=== PATIENT | male | born 1960 | race Caucasian/White ===

== ENCOUNTER 2019-12-21 15:08 | Outpatient (CLI) | payer BC, SELFPAY ==
[2019-12-21 16:06] LABS: Thyroid Stimulating Hormone < 0.015 uIU/mL (0.465-4.680)
[2019-12-21 16:23] LABS: Free T4 Free Thyroxine 1.59 ng/mL (0.78-2.19)
== END 2019-12-21 15:09 | disposition home or self-care (01) ==
PROVIDERS: PCP Internal Medicine; Visit Provider Internal Medicine
DX: E03.9 Hypothyroidism, unspecified (principal)
CPT/HCPCS: 36415; 84439; 84443

== ENCOUNTER 2020-06-12 09:31 | Outpatient (CLI) | payer BC, SELFPAY ==
[2020-06-12 10:04] LABS: Hemoglobin A1C 5.6 % (<5.7)
[2020-06-12 10:10] LABS: Alanine Aminotransferase 22 U/L (4-50); Albumin Level 4.3 g/dL (3.5-5.1); Alkaline Phosphatase 75 U/L (38-126); Anion Gap 10 mmol/L (8-16); Aspartate Amino Transferase 25 U/L (17-59); Bilirubin,Total 0.7 mg/dL (0.2-1.3); Blood Urea Nitrogen 22 mg/dL (9-20); Calcium 8.8 mg/dL (8.4-10.2); Carbon Dioxide 26 mmol/L (22-30); Chloride 104 mmol/L (98-107); Cholesterol 134 mg/dL (0-200); Estimated Glomerular Filt Rate > 60; Glucose 150 mg/dL (75-110); HDL Direct 35 mg/dL; Potassium 3.9 mmol/L (3.4-5.0); Sodium 140 mmol/L (137-145); Triglycerides 65 mg/dL (<150)
[2020-06-12 10:20] LABS: LDL Cholesterol Direct 83 mg/dL
[2020-06-12 10:39] LABS: Thyroid Stimulating Hormone < 0.015 uIU/mL (0.465-4.680)
[2020-06-17 15:17] LABS: Testosterone Free 32.2 pg/mL (35.0-155.0); Testosterone Total 307 ng/dL (250-1100)
== END 2020-06-12 09:32 | disposition home or self-care (01) ==
PROVIDERS: PCP Internal Medicine; Visit Provider Nurse Practitioner
DX: E11.9 Type 2 diabetes mellitus without complications (principal); E29.1 Testicular hypofunction; E03.9 Hypothyroidism, unspecified
CPT/HCPCS: 36415; 80053; 80061; 83036; 84402; 84403; 84443

== ENCOUNTER 2020-08-14 09:33 | Outpatient (CLI) | payer BC, SELFPAY ==
[2020-08-14 10:58] LABS: Thyroid Stimulating Hormone < 0.015 uIU/mL (0.465-4.680)
[2020-08-14 11:15] LABS: Free T4 Free Thyroxine 1.35 ng/mL (0.78-2.19)
== END 2020-08-14 09:34 | disposition home or self-care (01) ==
LOC: ANHLAB 09:35
PROVIDERS: PCP Internal Medicine; Visit Provider Nurse Practitioner
DX: E03.9 Hypothyroidism, unspecified (principal)
CPT/HCPCS: 36415; 84439; 84443

== ENCOUNTER 2020-11-10 13:01 | Emergency (ER) | payer BC, SELFPAY ==
--- NOTE | ~2020-11-10 | US_ITS ---
US abdomen limited INDICATION: Epigastric pain PROCEDURE: Realtime right upper abdominal ultrasound. COMPARISON: No prior studies for comparison. FINDINGS: The pancreas is normal without focal mass or pancreatic ductal dilation. Liver echotexture is normal without focal mass or intrahepatic biliary dilatation. There is normal directional flow i n the portal vein. There are gallstones. Gallbladder wall is mildly prominent measuring 3 mm. No pericholecystic fluid. Common bile duct measures 4 mm. No sonographic Hewitt's sign. IMPRESSION: 1: Cholelithiasis with mild gallbladder wall thickening. Consider cholecystitis in the appropriate cl inical setting. Reviewed, dictated and finalized at location A. CIATE DESIGNER IMPRESSION: 1: Cholelithiasis with mild gallbladder wall thickening. Consider cholecystitis in the appropriate clinical setting.
[2020-11-10 13:09] VITALS: BP 136/93; PULSE 83; RESP 18; TEMP 36.7; O2SAT 97
--- NOTE | 2020-11-10 14:02 | ED.ABDPAIN ---
HPI - Abdominal Pain General Chief Complaint: Abdominal Pain Stated Complaint: ABD Burning Time Seen by Provider: 11/10/20 13:27 Source: patient Mode of arrival: ambulatory Limitations: no limitations History of Present Illness HPI narrative: This is a 60-year-old male that presents the emergency department for abdominal pain since last night. Reports after eating pizza he noted some burning upper abdominal pain. Reports he has had trouble with reflux in the past. This feels similar. He has not tried to take any medications for this. Denies fever, chest pain, shortness of breath, or vomiting. Related Data Allergies Allergy/AdvReac Type Severity Reaction Status Date / Time No Known Allergies Allergy Unknown Verified 11/10/20 13:12 Review of Systems Review of Systems: Narrative: CONSTITUTIONAL: Denies fever CARDIOVASCULAR: Denies chest pain RESPIRATORY: Denies dyspnea. GASTROINTESTINAL: Reports abdominal pain. Denies nausea, vomiting All systems reviewed & are unremarkable except as noted in HPI and below PMFSH Past Medical History Medical History (Updated 11/10/20 @ 15:46 by Teresa Yin PA-C) Benign essential hypertension Hypothyroidism, unspecified Social History Social History Smoking status: Current every day smoker Alcohol intake: never Exam Narrative: Exam Narrative: GENERAL: Well-appearing, well-nourished, and in no acute distress. HEAD: Normocephalic, atraumatic. EYES: EOMI. CHEST: Clear to auscultation. No respiratory distress. No wheezes rales or rhonchi HEART: Regular rate and rhythm. No murmur heard. Normal peripheral pulses. ABDOMEN: Soft, nondistended, normal active bowel sounds. Mild tenderness to palpation in epigastrium, without guarding EXTREMITIES: Normal range of motion. No edema. SKIN: Warm, dry, no rash. NEURO: No focal deficits. Alert and oriented x3. PSYCH: Normal mood and affect Course Consultations Consultation #1: Spoke with Dr. Mora about patient and work-up. Patient will be sent on a low-fat diet and instructed to follow-up in clinic. Date: 11/10/20 Time: 15:43 Vital Signs Vital signs: Vital Signs Temperature 98.0 F 11/10/20 13:09 Pulse Rate 83 11/10/20 13:09 Respiratory Rate 18 11/10/20 13:09 Blood Pressure 136/93 H 11/10/20 13:09 Pulse Oximetry 97 11/10/20 13:09 Temperature 98.0 F 11/10/20 13:09 Pulse Rate 83 11/10/20 13:09 Respiratory Rate 18 11/10/20 13:09 Blood Pressure 136/93 H 11/10/20 13:09 Pulse Oximetry 97 11/10/20 13:09 MDM - Abdominal Pain MDM Narrative Medical decision making narrative: Patient presents to the emergency department for epigastric abdominal pain. He is afebrile and nontoxic-appearing. CBC is without leukocytosis. Metabolic panel and lipase without concerning findings. UA without evidence of infection. Right upper quadrant ultrasound does show cholelithiasis with mild gallbladder wall thickening. No pericholecystic fluid or sonographic Hewitt's sign. Patient was updated on case findings. He does report improvement with Protonix and GI cocktail. Spoke with Dr. Mora about patient and work-up. Patient will be sent on a low-fat diet and instructed to follow-up in clinic. Patient also instructed to take Pepcid for reflux symptoms. He is stable and felt appropriate for further outpatient evaluation. He was given warnings to return to the ER Lab Data Attestation: I reviewed the patient's lab results. Result diagrams: 11/10/20 13:58 11/10/20 13:58 Labs: Lab Results 11/10/20 11/10/20 11/10/20 Range/Units 13:58 13:58 14:04 WBC 7.8 (4.5-10.0) K/mm3 RBC 4.50 L (4.6-6.20) M/mm3 Hgb 14.0 (14.0-18.0) g/dL Hct 40.4 L (42.0-52.0) % MCV 89.8 (80-100) fl MCH 31.1 (26-34) pg MCHC 34.7 (32-36) g/dl RDW 12.8 (11.5-14.5) % Plt Count 193 (150-375) k/mm3 MPV 9.9 (7.4-10.4)
[2020-11-10 14:08] LABS: Basophils Absolute Auto 0.1 K/mm3 (0.0-0.1); Basophils Percent Auto 0.6 % (0.2-1.2); Eosinophils Absolute Auto 0.3 K/mm3 (0-0.3); Eosinophils Percent Auto 4.2 % (0-4.4); Hematocrit 40.4 % (42.0-52.0); Immature Granulocyte Absolute 0.02 K/mm3 (0.00-0.031); Immature Granulocyte Percent A 0.3 % (0-0.5); Lymphocytes Absolute Auto 1.91 K/mm3 (0.9-3.2); Lymphocytes Percent Auto 24.6 % (18.3-44.2); Mean Corpuscular HGB Conc 34.7 g/dl (32-36); Mean Corpuscular Hemoglobin 31.1 pg (26-34); Mean Corpuscular Volume 89.8 fl (80-100); Mean Platelet Volume 9.9 fl (7.4-10.4); Monocytes Absolute Auto 0.7 K/mm3 (0.1-0.6); Monocytes Percent Auto 8.5 % (2.6-8.5); Neutrophils Absolute Auto 4.8 K/mm3 (1.3-6.7); Neutrophils Percent Auto 61.8 % (45.5-73.1); Platelet Count Result 193 k/mm3 (150-375); Red Cell Distribution Width 12.8 % (11.5-14.5); White Blood Count 7.8 K/mm3 (4.5-10.0)
[2020-11-10] MEDS: PANTOPRAZOLE SODIUM IV 40 MG VIAL IV PUSH (14:10)
[2020-11-10 14:16] LABS: Add Urine Microscopic? YES; Appearance Urine Clear (Clear); Bilirubin Urine Negative (Negative); Blood Urine Negative (Negative); Color Urine Yellow (Yellow); Glucose Urine UA Negative (Negative); Ketones Urine Negative (Negative); Leukocyte Esterase Ur Negative LEU/UL (Negative); Mucus Urine Rare /lpf; Nitrate Urine Negative (Negative); Protein Urine Negative (Negative); WBC Urine 0-3 /hpf
[2020-11-10 14:17] LABS: Alanine Aminotransferase 28 U/L (4-50); Albumin Level 4.5 g/dL (3.5-5.1); Alkaline Phosphatase 75 U/L (38-126); Anion Gap 8 mmol/L (8-16); Aspartate Amino Transferase 33 U/L (17-59); Bilirubin,Total 0.4 mg/dL (0.2-1.3); Blood Urea Nitrogen 25 mg/dL (9-20); Calcium 8.9 mg/dL (8.4-10.2); Carbon Dioxide 26 mmol/L (22-30); Chloride 107 mmol/L (98-107); Estimated CRCL calculation 69 ml/min; Estimated Glomerular Filt Rate > 60; Glucose 120 mg/dL (75-110); Lipase 75 U/L (23-300); Potassium 3.6 mmol/L (3.4-5.0); Sodium 141 mmol/L (137-145)
[2020-11-10] MEDS: BELLADONNA ALK/PHENOB ELIX 10 ML, MAG HYDROX/ALUMINUM HYD/SIMETH 30 ML, LIDOCAINE HCL 2... PO (15:13)
[2020-11-10 15:58] VITALS: BP 131/88; PULSE 80; RESP 12; O2SAT 99
== END 2020-11-10 15:59 | disposition home or self-care (01) ==
PROVIDERS: Physician Assistant; Emergency Provider Family Medicine; PCP Internal Medicine
DX: K80.50 Calculus of bile duct without cholangitis or cholecystitis without obstruction (principal); K21.9 Gastro-esophageal reflux disease without esophagitis; I10 Essential (primary) hypertension; E03.9 Hypothyroidism, unspecified; F17.200 Nicotine dependence, unspecified, uncomplicated
CPT/HCPCS: 36415; 76705; 80053; 81001; 83690; 85025; 96374; 99284; A9270; C9113

== ENCOUNTER 2021-02-27 08:25 | Outpatient (CLI) | payer BC, SELFPAY ==
[2021-02-27 10:39] LABS: Hemoglobin A1C 5.8 % (<5.7)
[2021-02-27 12:05] LABS: Alanine Aminotransferase 21 U/L (4-50); Albumin Level 4.3 g/dL (3.5-5.1); Alkaline Phosphatase 62 U/L (38-126); Anion Gap 8 mmol/L (8-16); Aspartate Amino Transferase 30 U/L (17-59); Bilirubin,Total 0.5 mg/dL (0.2-1.3); Blood Urea Nitrogen 19 mg/dL (9-20); Calcium 8.5 mg/dL (8.4-10.2); Carbon Dioxide 23 mmol/L (22-30); Chloride 109 mmol/L (98-107); Cholesterol 143 mg/dL (0-200); Estimated Glomerular Filt Rate > 60; Glucose 104 mg/dL (75-110); HDL Direct 35 mg/dL; Potassium 4.2 mmol/L (3.4-5.0); Sodium 140 mmol/L (137-145); Triglycerides 62 mg/dL (<150)
[2021-02-27 12:16] LABS: LDL Cholesterol Direct 77 mg/dL
[2021-02-27 12:35] LABS: Thyroid Stimulating Hormone < 0.015 uIU/mL (0.465-4.680)
[2021-02-27 12:47] LABS: Prostate Specific Antigen 0.4 ng/mL (< OR = 4.0)
[2021-03-04 10:56] LABS: Testosterone Total 493 ng/dL (250-1100)
== END 2021-02-27 08:26 | disposition home or self-care (01) ==
PROVIDERS: PCP Internal Medicine; Visit Provider Nurse Practitioner
DX: E11.9 Type 2 diabetes mellitus without complications (principal); Z12.5 Encounter for screening for malignant neoplasm of prostate; E29.1 Testicular hypofunction; E03.9 Hypothyroidism, unspecified; E78.49 Other hyperlipidemia
CPT/HCPCS: 36415; 80053; 80061; 83036; 84153; 84403; 84443; G0103

== ENCOUNTER 2021-08-08 14:38 | Outpatient (CLI) | payer BC, SELFPAY ==
[2021-08-08 15:53] LABS: Thyroid Stimulating Hormone 0.245 uIU/mL (0.465-4.680)
== END 2021-08-08 14:39 | disposition home or self-care (01) ==
LOC: ANHLAB 14:43
PROVIDERS: PCP Internal Medicine; Visit Provider Nurse Practitioner
DX: E03.9 Hypothyroidism, unspecified (principal)
CPT/HCPCS: 36415; 84443

== ENCOUNTER 2021-08-28 07:27 | Outpatient (CLI) | payer BC, SELFPAY ==
[2021-08-28 07:51] LABS: Alanine Aminotransferase 96 U/L (4-50); Albumin Level 4.6 g/dL (3.5-5.1); Alkaline Phosphatase 67 U/L (38-126); Anion Gap 8 mmol/L (8-16); Aspartate Amino Transferase 38 U/L (17-59); Bilirubin,Total 0.4 mg/dL (0.2-1.3); Blood Urea Nitrogen 24 mg/dL (9-20); Calcium 8.5 mg/dL (8.4-10.2); Carbon Dioxide 25 mmol/L (22-30); Chloride 106 mmol/L (98-107); Cholesterol 179 mg/dL (0-200); Estimated Glomerular Filt Rate > 60; Glucose 102 mg/dL (65-110); HDL Direct 40 mg/dL; Potassium 4.2 mmol/L (3.4-5.0); Sodium 139 mmol/L (137-145); Triglycerides 78 mg/dL (<150)
[2021-08-28 08:02] LABS: LDL Cholesterol Direct 102 mg/dL
[2021-08-28 08:18] LABS: Hemoglobin A1C 5.9 % (<5.7)
[2021-08-28 08:22] LABS: Prostate Specific Antigen 0.5 ng/mL (< OR = 4.0)
[2021-09-02 09:34] LABS: Testosterone Total 283 ng/dL (250-1100)
== END 2021-08-28 07:28 | disposition home or self-care (01) ==
PROVIDERS: PCP Internal Medicine; Visit Provider Nurse Practitioner
DX: Z12.5 Encounter for screening for malignant neoplasm of prostate (principal); E78.49 Other hyperlipidemia; E11.9 Type 2 diabetes mellitus without complications
CPT/HCPCS: 36415; 80053; 80061; 83036; 84153; 84403; G0103

== ENCOUNTER 2021-10-22 14:39 | Outpatient (CLI) | payer BC, SELFPAY | END 2021-10-22 14:40 | disposition home or self-care (01) | LOC: ANHLAB 14:41 | PROVIDERS: PCP Internal Medicine; Visit Provider Nurse Practitioner | DX: E03.9 Hypothyroidism, unspecified (principal) | CPT/HCPCS: 36415; 84443 ==

== ENCOUNTER 2023-11-12 05:10 | Observation (INO) | payer BC, SELFPAY ==
[2023-11-12] VITALS (11 sets, daily range): BP systolic 148–184; BP diastolic 62–97; PULSE 63–79; RESP 12–20; TEMP 35.9–36.9; O2SAT 98–100; BMI 31.4
--- NOTE | ~2023-11-12 | CT_ITS ---
CT ANGIOGRAM NECK AND HEAD History: Diplopia. Technique: Axial noncontrast imaging of the brain was performed. Serial spiral axial images through t he head and neck were then obtained during arterial phase IV injection of 100 cc of Omnipaque 350. 3- D postprocessing and MIP images were then reconstructed on the remote workstation. Dose reduction michel hnique was used on this scan by utilizing automated exposure control and iterative reconstruction michel hnique. The dose-length product (DLP) was 1743.63 mGy-cm. CTA neck findings: There is occlusion of the left vertebral artery at its origin. Right vertebral ar clover is patent. Bilateral common carotid, internal carotid, external carotid arteries are patent. The re are calcified atherosclerotic plaques at the proximal internal carotid arteries bilaterally, with 20% stenosis at the proximal right internal carotid artery, and 50% stenosis at the proximal left int ernal carotid artery. The proximal right internal carotid artery demonstrates 20% stenosis relative t o the normal distal artery lumen diameter. The proximal left internal carotid artery demonstrates 50% stenosis relative to the normal distal artery lumen diameter. CTA head findings: Basilar artery and posterior cerebral arteries are patent. Distal internal carotid arteries, middle cerebral arteries, and anterior cerebral arteries are patent. No large vessel occlu kaiser. No stenosis or aneurysm. Axial noncontrast imaging of the brain is unremarkable. No acute infarct, intracranial hemorrhage or mass lesion seen. Mitchell-white differentiation preserved. No mass effect or midline shift. Ventricles a nd subarachnoid spaces are unremarkable. There is mild left maxillary and bilateral ethmoid sinus dis ease. Impression: Complete occlusion at the origin of the left vertebral artery. 50% stenosis proximal left internal carotid artery. 20% stenosis at the proximal right internal carotid artery. Reviewed, dictated and finalized at location M. Impression: Complete occlusion at the origin of the left vertebral artery. 50% stenosis proximal left internal carotid artery. 20% stenosis at the proximal right internal carotid artery.
--- NOTE | ~2023-11-12 | MR_ITS ---
EXAMINATION: MR orbits face neck wo/w con DATE: 11/12/2023 11:48 INDICATION: Diplopia. Transient ischemic attack. TECHNIQUE: Magnetic resonance imaging (MRI) of the orbits was performed without and with 20 mL MultiH ance intravenous contrast. COMPARISON: Head CT 11/12/2023 FINDINGS: There is mucosal thickening in the paranasal sinuses. There is rightward deviation of the n nathaly septum. The ocular globes are normal. The optic nerves are normal. The optic chiasm is normal. T he extraocular muscles are normal. There is no abnormal orbital mass. IMPRESSION: 1. Normal orbits. Reviewed, dictated and finalized at location A. IMPRESSION: 1. Normal orbits.
--- NOTE | ~2023-11-12 | XR_ITS ---
EXAMINATION: XR chest 2V DATE: 11/12/2023 14:25 INDICATION: New onset stroke TECHNIQUE: PA and lateral views of the chest were obtained. COMPARISON: None FINDINGS: Mild elevation the left hemidiaphragm and mild pleural thickening at the lateral left lower lung zone . Relatively symmetric small nodular opacities projecting along the inferior margin of the bilateral anterior fifth ribs most likely representing nipple shadows. No other airspace opacities, pulmonary e nayan, pleural effusion or pneumothorax. The cardiomediastinal silhouette is normal. Mild upper thorac ic and moderate thoracolumbar spondylosis. IMPRESSION: 1. Mild elevation the left hemidiaphragm with nonspecific mild pleural thickening at the lateral left lower lung zone. Reviewed, dictated and finalized at location L. IMPRESSION: 1. Mild elevation the left hemidiaphragm with nonspecific mild pleural thickeni ng at the lateral left lower lung zone.
--- NOTE | ~2023-11-12 | MR_ITS ---
EXAMINATION: MR brain/brain stem wo/w con DATE: 11/12/2023 11:48 INDICATION: Transient ischemic attack. TECHNIQUE: Magnetic resonance imaging (MRI) of the brain and brainstem was performed without and with 20 mL MultiHance intravenous contrast. COMPARISON: Head CT 11/12/2023 FINDINGS: There is a 10 x 4 x 6 mm enhancing extra-axial mass inferolateral to the left frontal lobe, consistent with a meningioma. There are scattered areas of nonspecific increased T2-weighted signal intensity in the cerebral white matter, which is within normal limits for the patient's age. There is no intracranial hemorrhage or acute infarction. The ventricles are normal in size. There is mucosal thickening in the paranasal sinuses. The orbits are normal. The mastoid air cells are normal. IMPRESSION: 1. Small meningioma inferolateral to left frontal lobe. Reviewed, dictated and finalized at location A.
--- NOTE | 2023-11-12 05:20 | ECG_ITS ---
Measurements Intervals [place] Rate: 67 P: 19 IN: 168 QRS: -20 QRSD: 97 T: 7 QT: 389 QTc: 412 Interpretive Statements SINUS RHYTHM LEFT VENTRICULAR HYPERTROPHY MINIMAL Q WAVES- HIGH LATERAL LEADS BORDERLINE ECG COMPARED TO ECG 06/15/2019 20:13:35 LEFT VENTRICULAR HYPERTROPHY NOW PRESENT Electronically Signed On 11-12-2023 6:27:09 CDT by Arnulfo Espinoza D.O.
[2023-11-12 06:26] LABS: Basophils Absolute Auto 0.1 K/mm3 (0.0-0.1); Basophils Percent Auto 0.6 % (0.2-1.2); Eosinophils Absolute Auto 0.6 K/mm3 (0-0.3); Eosinophils Percent Auto 7.5 % (0-4.4); Hematocrit 41.4 % (42.0-52.0); Hemoglobin 13.6 g/dL (14.0-18.0); Immature Granulocyte Absolute 0.04 K/mm3 (0.00-0.031); Immature Granulocyte Percent A 0.5 % (0-0.5); Lymphocytes Absolute Auto 1.49 K/mm3 (0.9-3.2); Lymphocytes Percent Auto 19.1 % (18.3-44.2); Mean Corpuscular HGB Conc 32.9 g/dl (32-36); Mean Corpuscular Volume 91.2 fl (80-100); Mean Platelet Volume 9.8 fl (7.4-10.4); Monocytes Absolute Auto 0.8 K/mm3 (0.1-0.6); Monocytes Percent Auto 10.1 % (2.6-8.5); Neutrophils Absolute Auto 4.9 K/mm3 (1.3-6.7); Neutrophils Percent Auto 62.2 % (45.5-73.1); Platelet Count Result 210 k/mm3 (150-375); Red Blood Count 4.54 M/mm3 (4.6-6.20); White Blood Count 7.8 K/mm3 (4.5-10.0)
[2023-11-12 06:36] LABS: Alanine Aminotransferase 46 U/L (6-50); Albumin Level 4.9 g/dL (3.5-5.1); Alkaline Phosphatase 81 U/L (38-126); Anion Gap 8 mmol/L (8-16); Aspartate Amino Transferase 40 U/L (17-59); Bilirubin,Total 0.7 mg/dL (0.2-1.3); Blood Urea Nitrogen 33 mg/dL (9-20); Calcium 9.4 mg/dL (8.4-10.2); Carbon Dioxide 24 mmol/L (22-30); Chloride 105 mmol/L (98-107); Estimated CRCL calculation 55 ml/min; Estimated Glomerular Filt Rate 51; Glucose 114 mg/dL (65-110); Potassium 3.9 mmol/L (3.4-5.0); Sodium 137 mmol/L (137-145)
--- NOTE | 2023-11-12 07:49 | ED.GENADULT ---
HPI - General Adult General Chief complaint: Recheck/Abnormal Lab/Rx Stated complaint: HTN Time Seen by Provider: 11/12/23 05:11 History of Present Illness HPI narrative: This is a 63-year-old male with a history of hypertension and hypothyroid presenting for double vision. Patient woke up this morning (LKK 4:15am) to go to work and noticed that when he looked down he developed double vision. He denies dysphagia dysarthria, loss of coordination or numbness tingling weakness to any extremity. Patient denies any trauma. Related Data Allergies Allergy/AdvReac Type Severity Reaction Status Date / Time No Known Allergies Allergy Unknown Verified 11/12/23 05:17 [facility] Past Medical History Medical History Benign essential hypertension H/O gastroesophageal reflux (GERD) Hypothyroidism, unspecified Tobacco abuse Surgical History Surgical History H/O thumb surgery Family History Family History Father Diabetes mellitus Mother Hypertension Other Diabetes mellitus Cerebrovascular accident Social History Social History Smoking packs per day: 1 Smoking cigarettes per day: 20.0 Years smoked: 30 Smoking pack-years: 30.00 Smoking status: Former smoker Tobacco type: cigarettes Second hand tobacco smoke exposure: Yes Smoking end date: 08/31/20 Alcohol intake: never Substance use: never Substance use type: does not use Lack of Transportation: No Lack of Food: Never True Current Housing: I Have Housing Concerned About Future Housing: No Difficulty Paying Gas/Electric Bills: No Difficulty Paying for Meds: No Currently Unemployed: No Education: Trade/Vocational Certificate Difficulty w/ Childcare or Family Care: No Living arrangements: with family Occupation/Education: occupation Additional occupation/education comments: maintenance Gender identity (if verbalized by the patient): Male Exam Narrative: APPEARANCE: No apparent distress. Head: atraumatic. EYES: Pupils equal reactive, patient holding his head in the rightward tilt NOSE: Atraumatic NECK: Trachea midline RESPIRATORY: No increased rate of breathing CARDIOVASCULAR: RRR, ABDOMINAL: Non-distended MUSCULOSKELETAl: No obvious deformities NEURO: Alert. Cranial nerves 2-12 grossly intact. Sensation light touch, motor function cerebellar function intact for 4 extremities. Gait exam was normal. no visual field deficits. double vision improves when the patient told his head to the right and looks to the left and worsens when he tilts his head to the left and looks to the right. SKIN:: Warm, dry. Normal color PSYCHIATRIC: Normal affect NIH Stroke Scale/Score (NIHSS) from [email or web address] on 11/12/2023 All calculations should be rechecked by clinician prior to use RESULT SUMMARY: 0 points NIH Stroke Scale INPUTS: 1A: Level of consciousness ?> 0 = Alert; keenly responsive 1B: Ask month and age ?> 0 = Both questions right 1C: 'Blink eyes' & 'squeeze hands' ?> 0 = Performs both tasks 2: Horizontal extraocular movements ?> 0 = Normal 3: Visual weber ?> 0 = No visual loss 4: Facial palsy ?> 0 = Normal symmetry 5A: Left arm motor drift ?> 0 = No drift for 10 seconds 5B: Right arm motor drift ?> 0 = No drift for 10 seconds 6A: Left leg motor drift ?> 0 = No drift for 5 seconds 6B: Right leg motor drift ?> 0 = No drift for 5 seconds 7: Limb Ataxia ?> 0 = No ataxia 8: Sensation ?> 0 = Normal; no sensory loss 9: Language/aphasia ?> 0 = Normal; no aphasia 10: Dysarthria ?> 0 = Normal 11: Extinction/inattention ?> 0 = No abnormality Course Vital Signs Vital signs: Vital Signs Temperature 98.2 F 11/12/23 05:10 Pulse Rate 70 11/12/23 05:10 Respiratory Rate 13 11/12/23 05:10 Blood Pressure 184/
[2023-11-12] MEDS: ASPIRIN 81 MG CHEWABLE TABLET 324 MG PO (08:33)
--- NOTE | 2023-11-12 09:55 | ADMGEN ---
This patient, Sudheer Anderson, was admitted to 2 Medical Room 261-01. Patient/family oriented to hospital policies and general routines including ID bracelet, bed and alarms, visiting hours, pain management, procedures, bathroom and other care routines, personal items, smoking policy, room service/diet, and visiting hours. Information on how to activate the Rapid Response Team has been discussed. Patient/Family are encouraged to report perceived risks to care and to ask questions if they do not understand what they are told or what they should do.
--- NOTE | 2023-11-12 11:02 | WPDNEURCNPN ---
Assessment and Plan Assessment and plan (1) Brain TIA: Code(s): G45.9 - Transient cerebral ischemic attack, unspecified Status: Acute (2) Cranial nerve IV palsy: Code(s): H49.10 - Fourth [trochlear] nerve palsy, unspecified eye Status: Acute (3) Occlusion of left vertebral artery: Code(s): I65.02 - Occlusion and stenosis of left vertebral artery Status: Acute (4) Benign essential hypertension: Code(s): I10 - Essential (primary) hypertension Status: Acute Plan Sudheer Anderson is a 63 year old male with a history of prediabetes, HTN, hypothyroidism presenting for evaluation of double vision, that was improved with tilting his head to the right, that self-resolved. Concerning for isolated cranial nerve IV palsy. Could be transient microvascular event from uncontrolled BP. MRI brain and orbit was unrevealing other than small L frontal meningioma ([id number]). ABCD score for TIA is 4 -- recommend DAPT x 3 weeks. - Start Aspirin 81mg daily - Plavix 75mg x 3 weeks - Obtain surface echocardiogram with bubble study - Check LDL and HgbA1c, goal LDL is <70. If elevated will need to be started on statin. - Aim for normotension Consult date: 11/12/23 Reason for consult: Double vision HPI: Sudheer Anderson is a 63 year old male with a history of HTN, hypothyroidism presenting for evaluation of double vision. Patient woke up around 0415 this morning and noticed that he had double vision, that was improved with tilting his head to the right, and worse with tilting the head to the left. He did not develop any other symptoms -- no focal weakness/numbness, speech or balance issues. He presented to [place] ED where his NIH score was 0. BP ranged from 155/87-184/95. CT head was negative for any acute findings. CTA brain/carotid showed complete occlusion of the left vertebral artery, 50% stenosis of the proximal L ICA and 20% stenosis of the R ICA. Symptoms resolved while patient was in the ER. The ER physician discussed case with [facility] ophthalmology who recommend MRI of the orbits. He also discussed case with [facility] stroke team, who recommended routine stroke work-up and secondary prevention. Patient is feeling well at the time of my evaluation. He reports that once his BP was treated in the ED, his symptoms began to resolve. He does not have any double vision presently. When he was having the double vision, it occurred with looking up and looking down, but not with lateral or midline gaze. Review of Systems Review of Systems: All systems reviewed & are unremarkable except as noted in HPI and below PMFSH Past Medical History Medical History (Updated 11/12/23 @ 14:23 by Keena Love APRN) Benign essential hypertension Cholelithiasis H/O gastroesophageal reflux (GERD) Hypothyroidism, unspecified Other hyperlipidemia Prediabetes Testicular hypofunction Tobacco abuse Surgical History Surgical History H/O thumb surgery Family History Family History Father Diabetes mellitus Mother Hypertension Other Diabetes mellitus Cerebrovascular accident Social History Social History Smoking packs per day: 1 Smoking cigarettes per day: 20.0 Years smoked: 30 Smoking pack-years: 30.00 Smoking status: Former smoker Second hand tobacco smoke exposure: Yes Alcohol intake: never Substance use: never Substance use type: does not use Do You Feel Safe in your Home?: Yes Lack of Transportation: No Lack of Food: Never True Current Housing: I Have Housing Concerned About Future Housing: No Difficulty Paying Gas/Electric Bills: No Difficulty Paying for Meds: No Currently Unemployed: No Education: High School Diploma/GED Difficulty w/ Childcare or Family Care: No Living arrangements: with family Occupation
--- NOTE | 2023-11-12 13:47 | PM.IMHP ---
H&P: HPI History of Present Illness Date/Time: 11/12/23 13:47 Chief Complaint: Vision Changes Narrative: 63 y/o M presents here with visual changes with PMH of HTN, tobacco use, hypothyroidism, and GERD. Patient reports going to sleep at 21:00 on 11/10 without visual disturbances. Patient discovered symptoms at 04:15am this morning (11/11). While getting ready for work he noticed double vision, blurred - noticed it while looking down, but did still notice it when looking upward later in the ED. No hx of migraines. No recent headaches. Recent illness - URI last week. No recent trauma. Denies any other focal deficits - dysarthria, facial droop, dysphagia, no LOC, focal weakness, changes in sensation, or changes in gait. Patient reported diplopia and blurred vision resolved after his blood pressure was reduced. Patient does not take BP at home. Initial VS at presentation: 98.2 F, HR 70, RR 13, 184/95, 99% on RA. ED workup showed: unremarkable WBC and Hgb, creatinine 1.4 (previously 1.13 in 2021), and TSH WNL. CTA of the head and neck showed complete occlusion of the L vertebral artery, 50% stenosis of the L ICA, and 20% of the R ICA. Review of Systems Review of Systems: All systems reviewed & are unremarkable except as noted in HPI and below [facility] Past Medical History Medical History (Updated 11/12/23 @ 14:23 by Keena Love APRN) Benign essential hypertension Cholelithiasis H/O gastroesophageal reflux (GERD) Hypothyroidism, unspecified Other hyperlipidemia Prediabetes Testicular hypofunction Tobacco abuse Surgical History Surgical History H/O thumb surgery Family History Family History Father Diabetes mellitus Mother Hypertension Other Diabetes mellitus Cerebrovascular accident Social History Social History Smoking packs per day: 1 Smoking cigarettes per day: 20.0 Years smoked: 30 Smoking pack-years: 30.00 Smoking status: Former smoker Second hand tobacco smoke exposure: Yes Alcohol intake: never Substance use: never Substance use type: does not use Do You Feel Safe in your Home?: Yes Lack of Transportation: No Lack of Food: Never True Current Housing: I Have Housing Concerned About Future Housing: No Difficulty Paying Gas/Electric Bills: No Difficulty Paying for Meds: No Currently Unemployed: No Education: High School Diploma/GED Difficulty w/ Childcare or Family Care: No Living arrangements: with family Occupation/Education: occupation Additional occupation/education comments: maintenance Gender identity (if verbalized by the patient): Male Spiritual care concerns: No Meds Home Medications and Allergies Home Medications Medication Instructions Recorded Confirmed Type amlodipine 10 mg tablet See Rx Instructions .Route 08/12/23 11/12/23 Rx .COMPLEX #30 tabs hydrochlorothiazide 25 mg tablet 25 mg PO DAILY #30 tabs 08/12/23 11/12/23 Rx levothyroxine 88 mcg tablet See Rx Instructions .Route 08/12/23 11/12/23 Rx .COMPLEX #30 tabs valsartan 320 mg tablet 320 mg PO DAILY #30 tabs 08/12/23 11/12/23 Rx clotrimazole-betamethasone 1 1 applic topical BID foot rash #15 10/20/23 11/12/23 Rx %-0.05 % topical cream grams Allergies Allergy/AdvReac Type Severity Reaction Status Date / Time No Known Allergies Allergy Unknown Verified 11/12/23 10:12 Vital Signs Vital Signs - 24 hr 11/12/23 05:10 11/12/23 05:38 11/12/23 06:27 Temperature 98.2 F Pulse Rate 70 67 Respiratory Rate 13 12 Blood Pressure 184/95 H 175/97 H 155/87 H Pulse Oximetry 99 98 Oxygen Delivery Room Air 11/12/23 07:47 11/12/23 10:21 11/12/23 12:44 Temperature 97 F L Pulse Rate 70 65 72 Respiratory Rate 14 14 Blood Pressure 164/83 H 155/78 H Pulse Oximetry 99 100 Oxygen Delivery
--- NOTE | 2023-11-12 14:16 | ECHO_ITS ---
Patient Info Name: Sudheer Anderson Age: 63 years : 1960 Gender: Male Ht: 68 in Wt: 220 lbs BSA: 2.22 m2 HR: 63 bpm BP: 148 / 66 mmHg Heart Rhythm: Sinus Rhythm Technical Quality: Good Exam Date: 11/12/2023 2:55 PM Exam Location: Echo Lab Patient Status: Inpatient Admit Date: 11/12/2023 Staff Ordering Physician: Keena Love APRN Investment Representative: Whit Riggs RDCS Attending Provider: Polo Wyatt MD Referring Physician: Ivan VARMA; Exam Type: CA echo doppler w bubble study Study Info Indications - CVA workeup Complete two-dimensional, color flow and Doppler transthoracic echocardiogram is performed with agitated saline. Summary 1. Left ventricular chamber dimension is normal. 2. Left ventricular systolic function is normal, estimated at 60-65%. 3. There is mildly increased left ventricular wall thickness. 4. The left ventricular diastolic function is grade I diastolic dysfunction. 5. Right ventricular chamber dimension is mildly enlarged. 6. Right ventricular systolic function is normal. 7. There is mild mitral valve regurgitation. 8. Intact interatrial septum visualized by color flow and agitated saline imaging. Negative bubble study. Left Ventricle Left ventricular chamber dimension is normal. Left ventricular systolic function is normal, estimated at 60-65%. There is mildly increased left ventricular wall thickness. The left ventricular diastolic function is grade I diastolic dysfunction. Right Ventricle Right ventricular chamber dimension is mildly enlarged. Right ventricular systolic function is normal. Left Atria Left atrial chamber dimension is normal. Right Atria Right atrial chamber dimension is normal. Atrial Septum Intact interatrial septum visualized by color flow and agitated saline imaging. Negative bubble study. Aortic Valve The aortic valve is not well visualized. There is no aortic valve stenosis. There is no aortic valve regurgitation. Pulmonic Valve The pulmonic valve is not well visualized. Mitral Valve There is mild mitral valve regurgitation. Tricuspid Valve There is trace tricuspid valve regurgitation. Pericardium/Pleural There is no pericardial effusion. Inferior Vena Cava Normal inferior vena cava with >50% collapse upon inspiration consistent with normal right atrial pressure, 3 mmHg. Aorta The aortic root size at the sinus of Valsalva is normal. Left Ventricular Outflow Tract Name Value Normal LVOT 2D LVOT Diameter 2.3 cm LVOT Doppler LVOT Peak Gradient 2 mmHg LVOT Mean Gradient 1 mmHg LVOT VTI 17 cm LVOT VTI/AV VTI Ratio 0.8 LVOT Stroke Volume 71 ml LVOT CO 4.4 l/min LVOT CI 2.0 l/min/m2 Mitral Valve Name Value Normal MV Doppler MV Decel [place]
[2023-11-12] MEDS: LACTATED RINGERS 1,000 ML 100 ML IV CONT (14:46)
[2023-11-12 15:02] LABS: Cholesterol 179 mg/dL (0-200); HDL Direct 36 mg/dL; Triglycerides 106 mg/dL (<150)
[2023-11-12 15:13] LABS: LDL Cholesterol Direct 110 mg/dL
[2023-11-12] MEDS: BETAMETHASONE/CLOTRIMAZOLE CR 15 GM TUBE 1 APPLIC TOPICAL (16:23)
[2023-11-13] VITALS: PULSE 65
[2023-11-13 04:00] VITALS: PULSE 68
[2023-11-13 06:00] VITALS: BP 160/64; PULSE 85; RESP 20; TEMP 36.3; O2SAT 98
[2023-11-13] MEDS: LEVOTHYROXINE SODIUM 88 MCG TABLET PO (06:25)
[2023-11-13 07:47] LABS: Alanine Aminotransferase 42 U/L (6-50); Albumin Level 4.7 g/dL (3.5-5.1); Alkaline Phosphatase 77 U/L (38-126); Anion Gap 8 mmol/L (8-16); Aspartate Amino Transferase 36 U/L (17-59); Bilirubin,Total 0.6 mg/dL (0.2-1.3); Blood Urea Nitrogen 32 mg/dL (9-20); Calcium 9.1 mg/dL (8.4-10.2); Carbon Dioxide 27 mmol/L (22-30); Chloride 104 mmol/L (98-107); Estimated CRCL calculation 50 ml/min; Estimated Glomerular Filt Rate 47; Glucose 101 mg/dL (65-110); Potassium 3.7 mmol/L (3.4-5.0); Sodium 139 mmol/L (137-145)
[2023-11-13 07:51] LABS: Basophils Absolute Auto 0.1 K/mm3 (0.0-0.1); Basophils Percent Auto 0.9 % (0.2-1.2); Eosinophils Absolute Auto 0.5 K/mm3 (0-0.3); Eosinophils Percent Auto 6.3 % (0-4.4); Hematocrit 41.1 % (42.0-52.0); Hemoglobin 13.4 g/dL (14.0-18.0); Immature Granulocyte Absolute 0.03 K/mm3 (0.00-0.031); Immature Granulocyte Percent A 0.4 % (0-0.5); Lymphocytes Absolute Auto 1.27 K/mm3 (0.9-3.2); Lymphocytes Percent Auto 16.2 % (18.3-44.2); Mean Corpuscular HGB Conc 32.6 g/dl (32-36); Mean Corpuscular Volume 91.9 fl (80-100); Mean Platelet Volume 9.9 fl (7.4-10.4); Monocytes Absolute Auto 0.7 K/mm3 (0.1-0.6); Monocytes Percent Auto 9.3 % (2.6-8.5); Neutrophils Absolute Auto 5.2 K/mm3 (1.3-6.7); Neutrophils Percent Auto 66.9 % (45.5-73.1); Platelet Count Result 209 k/mm3 (150-375); Red Blood Count 4.47 M/mm3 (4.6-6.20); Red Cell Distribution Width 13.2 % (11.5-14.5); White Blood Count 7.8 K/mm3 (4.5-10.0)
[2023-11-13 08:00] VITALS: BP 171/84; PULSE 77; PULSE 78; RESP 20; TEMP 36.4; O2SAT 100
[2023-11-13] MEDS: CLOPIDOGREL BISULFATE 75 MG TABLET PO (08:32)
[2023-11-13] MEDS: VALSARTAN 160 MG TABLET 320 MG PO (08:32)
[2023-11-13] MEDS: ATORVASTATIN 40 MG TABLET PO (08:32)
[2023-11-13] MEDS: hydroCHLOROthiazide 25 MG TABLET PO (08:32)
[2023-11-13] MEDS: amLODIPine BESYLATE 5 MG TABLET 10 MG PO (08:32)
[2023-11-13] MEDS: ASPIRIN 81 MG ENTERIC TABLET PO (08:32)
[2023-11-13] MEDS: BETAMETHASONE/CLOTRIMAZOLE CR 15 GM TUBE 1 APPLIC TOPICAL (08:33)
[2023-11-13 12:00] VITALS: BP 147/65; PULSE 73; PULSE 77; RESP 20; TEMP 36.6; O2SAT 100
--- NOTE | 2023-11-13 13:47 | PC.NURSE ---
On 11/13/23, the student, [Bryon Vergara], provided care and completed [facility] documentation on this patient. I have reviewed the student's documentation and agree with the findings.
--- NOTE | 2023-11-13 14:08 | PM.DS ---
DS: Admitting Diagnosis Discharge Date 11/13/23 Admitting Diagnosis vision changes DS: Discharge Diagnosis Discharge Diagnosis (1) Occlusion of left vertebral artery: Code(s): I65.02 - Occlusion and stenosis of left vertebral artery Status: Acute Assessment and Plan: New deficits of diplopia discovered at 11/11 @0415. Imaging showed complete occlusion at the origin of the left vertebral artery.. -ED discussed case with the [facility]roke [facility] - Dr Steven Chairez. Due to resolution of symptoms despite imaging findings, they recommended typical stroke reduction medications and MRI. - CXR WNL - CTA 1. Complete occlusion at the origin of the left vertebral artery. 2. 50% stenosis proximal left internal carotid artery. 3. 20% stenosis at the proximal right internal carotid artery. - Neurology consulted - Anam ARREOLA. Provided the following recs: ABCD score for TIA is 4 -- recommend DAPT x 3 weeks. Start Aspirin 81mg daily Plavix 75mg x 3 weeks echocardiogram with bubble study Check LDL and HgbA1c, goal LDL is <70. If elevated will need to be started on statin. C/F isolated cranial nerve IV palsy v transient microvascular event secondary to uncontrolled HTN - Aim for normotension - monitor BP with cuff at home - Brain MRI w/wo 1. small meningioma (10 x 4 x 6 mm) inferolateral to left frontal lobe. - Orbits/Face/Neck MRI 1. normal orbits - Echo w/Bubble unrevealing - Atorvastatin 40 mg PO, d/c if lipid panel WNL - Plavix 75 mg PO - ASA 81 mg (2) ABHIJEET (acute kidney injury): Code(s): N17.9 - Acute kidney failure, unspecified Status: Acute Assessment and Plan: - suspect injury superimposed on some degree of CKD -could be secondary to uncontrolled hypertension (3) Benign essential hypertension: Code(s): I10 - Essential (primary) hypertension Status: Chronic (4) Hypothyroidism, unspecified: Qualifiers: Hypothyroidism type: acquired Qualified Code(s): E03.9 - Hypothyroidism, unspecified Code(s): E03.9 - Hypothyroidism, unspecified Status: Chronic DS: Summary Hospital Course Hospital Course: 63 y/o M presents here with visual changes with PMH of HTN, tobacco use, hypothyroidism, and GERD. While getting ready for work he noticed double vision, blurred - noticed it while looking down, but did still notice it when looking upward later in the ED. No hx of migraines. No recent headaches. Recent illness - URI last week. No recent trauma. Patient reported diplopia and blurred vision resolved after his blood pressure was reduced. Patient does not take BP at home. Initial VS at presentation: 98.2 F, HR 70, RR 13, 184/95, 99% on RA. ED workup showed: unremarkable WBC and Hgb, creatinine 1.4 (previously 1.13 in 2021), and TSH WNL. CTA of the head and neck showed complete occlusion of the L vertebral artery, 50% stenosis of the L ICA, and 20% of the R ICA. Neurology consulted - ABCD score for TIA is 4 -- recommend DAPT x 3 weeks. Start Aspirin 81mg daily. Plavix 75mg x 3 weeks. echocardiogram with bubble study unrevealing. Goal LDL is <70. C/F isolated cranial nerve IV palsy v transient microvascular event secondary to uncontrolled HTN. Symptoms have resolved, discussed importance of BP cuff and monitoring at home. Patient to follow up with PCP upon d/c. Time Spent with Patient Time attestation: Total time spent providing and/or coordinating discharge services: Exam Narrative: GEN: well appearing, male. No acute distress. Head: atraumatic. EYES: PERRLA, EOMI NECK: supple RESPIRATORY: Lungs clear to auscultation CARDIOVASCULAR: RRR. ABDOMINAL: Non-distended, soft non tender with normal BS MUSCULOSKELETAL: No obvious deformities. No edema. NEURO: Alert and oriented x3. Cranial nerves 2-12 grossly intact. Gait exam was normal. no visual deficits. SKIN:: Warm, dry. Normal color PSYCHIATRIC: Normal affect. DS: Data Data Completed and Pending Labs on day o
== END 2023-11-13 14:45 | disposition home or self-care (01) ==
LOC: ANHED 08:23 → ANH2MED 11-13 10:12
PROVIDERS: Student in an Organized Health Care Education/Training Program; Admitting Provider Internal Medicine; Emergency Provider Emergency Medicine; PCP Nurse Practitioner; Visit Provider Internal Medicine
DX: I65.02 Occlusion and stenosis of left vertebral artery (principal); H49.12 Fourth [trochlear] nerve palsy, left eye; I65.23 Occlusion and stenosis of bilateral carotid arteries; D32.0 Benign neoplasm of cerebral meninges; N17.9 Acute kidney failure, unspecified; I11.9 Hypertensive heart disease without heart failure; I34.0 Nonrheumatic mitral (valve) insufficiency; E03.9 Hypothyroidism, unspecified; K21.9 Gastro-esophageal reflux disease without esophagitis; R73.03 Prediabetes; Z87.891 Personal history of nicotine dependence; Z79.899 Other long term (current) drug therapy
CPT/HCPCS: 36415; 70496; 70498; 70543; 70553; 71046; 80053; 80061; 83036; 84443; 85025; 93005; 93306; 96375; 99199; 99285; A9270; A9577; G0378; J7120; Q9967

== ENCOUNTER 2024-03-19 09:05 | Emergency (ER) | payer BC, SELFPAY ==
--- NOTE | 2024-03-19 09:14 | ED.GENADULT ---
HPI - General Adult General Chief complaint: Skin/Abscess/Foreign Body Stated complaint: Allergic Reaction/Wound Time Seen by Provider: 03/19/24 09:16 Source: patient, RN notes reviewed and old records reviewed Mode of arrival: ambulatory Limitations: no limitations History of Present Illness HPI narrative: 63-year-old presents to the [facility] with complaints redness, swelling in itchy areas around a area of the right distal forearm. Had stated he cut himself on Thursday, 5 days ago on an old swelling machine. A small abrasion is noted with surrounding erythema and mild swelling. Has surrounding probable folliculitis Slightly increased warmth. No drainage. Onset (ago): day(s) Related Data Allergies Allergy/AdvReac Type Severity Reaction Status Date / Time No Known Allergies Allergy Unknown Verified 11/18/23 14:39 Review of Systems Review of Systems: All systems reviewed & are unremarkable except as noted in HPI and below Constitutional: Constitutional: Reports no additional constitutional complaints Eyes: Eyes: Reports no additional eye complaints ENT: Reports system reviewed and no additional complaints, except as documented Cardiovascular: Cardiovascular: Reports no additional cardiovascular complaints, Denies chest pain and Denies dyspnea Respiratory: Respiratory: Reports no additional respiratory complaints, Denies chest congestion, Denies cough and Denies dyspnea Gastrointestinal: Gastrointestinal: Reports no additional gastrointestinal complaints, Denies abdominal pain, Denies nausea and Denies vomiting Musculoskeletal: Musculoskeletal: Reports no additional musculoskeletal complaints Integumentary/Breasts: Skin/Breast: Reports as per HPI Neurologic: Reports system reviewed and no additional complaints, except as documented Psychiatric: Psychiatric: Reports no additional psychiatric complaints Allergic/Immunologic: Allergic/Immunologic: Reports no additional allergic/immunologic complaints [facility] Past Medical History Medical History Benign essential hypertension Cholelithiasis H/O gastroesophageal reflux (GERD) Hypothyroidism, unspecified Other hyperlipidemia Prediabetes Testicular hypofunction Tobacco abuse Surgical History Surgical History H/O thumb surgery Family History Family History Father Diabetes mellitus Mother Hypertension Other Diabetes mellitus Cerebrovascular accident Social History Social History Smoking packs per day: 1 Smoking cigarettes per day: 20.0 Years smoked: 30 Smoking pack-years: 30.00 Smoking status: Former smoker Second hand tobacco smoke exposure: Yes Alcohol intake: never Substance use: never Substance use type: does not use Do You Feel Safe in your Home?: Yes Lack of Transportation: No Lack of Food: Never True Current Housing: I Have Housing Concerned About Future Housing: No Difficulty Paying Gas/Electric Bills: No Difficulty Paying for Meds: No Currently Unemployed: No Education: High School Diploma/GED Difficulty w/ Childcare or Family Care: No Living arrangements: with family 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 There is no relevant family history pertinent to the patient complaint. Exam Const: General: cooperative, healthy appearing, comfortable, no acute distress, well developed, alert and well nourished Nutritional Appearance: well nourished Orientation/consciousness: patient oriented x3 Limitations: no limitations SOPHIAMT: Kobe
[2024-03-19 09:19] VITALS: BP 157/72; PULSE 58; RESP 18; TEMP 36.6; O2SAT 100
== END 2024-03-19 09:56 | disposition home or self-care (01) ==
PROVIDERS: Emergency Provider Nurse Practitioner; PCP Internal Medicine
DX: L73.9 Follicular disorder, unspecified (principal); L03.113 Cellulitis of right upper limb; Z87.891 Personal history of nicotine dependence; I10 Essential (primary) hypertension; K21.9 Gastro-esophageal reflux disease without esophagitis; E03.9 Hypothyroidism, unspecified; E78.49 Other hyperlipidemia; R73.03 Prediabetes
CPT/HCPCS: 99213; G0463

== ENCOUNTER 2024-03-22 12:59 | Emergency (ER) | payer BC, SELFPAY ==
[2024-03-22 13:03] VITALS: BP 169/77; PULSE 72; RESP 18; TEMP 36.6; O2SAT 99
[2024-03-22 14:26] VITALS: BP 172/89; PULSE 62; RESP 18; O2SAT 99
--- NOTE | 2024-03-22 16:01 | ED.WOUNDLAC ---
HPI - Wound/Laceration General Chief Complaint: Wound/Laceration Stated Complaint: wound to right arm Time Seen by Provider: 03/22/24 14:35 History of Present Illness HPI narrative: 63-year-old male with history of hypertension, hypothyroidism, hyperlipidemia presenting with a rash. Patient states that he sustained an abrasion earlier this week. States that it seemed to become infected so he was seen at urgent care who started him on doxycycline. He developed right eye swelling after taking several doses of doxycycline so he went back to urgent care who discontinued it and started him on Keflex. States that he took 1 dose of that this morning. No shortness of breath, oral swelling, wheezing, nausea vomiting. No fevers or chills. Denies any lesions elsewhere. Related Data Allergies Allergy/AdvReac Type Severity Reaction Status Date / Time doxycycline Allergy Intermediate Swelling Verified 03/22/24 14:24 Review of Systems Review of Systems: All systems reviewed & are unremarkable except as noted in HPI and below PMFSH Past Medical History Medical History Benign essential hypertension Cholelithiasis H/O gastroesophageal reflux (GERD) Hypothyroidism, unspecified Other hyperlipidemia Prediabetes Testicular hypofunction Tobacco abuse Surgical History Surgical History H/O thumb surgery Family History Family History Father Diabetes mellitus Mother Hypertension Other Diabetes mellitus Cerebrovascular accident Social History Social History Smoking packs per day: 1 Smoking cigarettes per day: 20.0 Years smoked: 30 Smoking pack-years: 30.00 Smoking status: Former smoker Second hand tobacco smoke exposure: Yes Alcohol intake: never Substance use: never Substance use type: does not use Do You Feel Safe in your Home?: Yes Lack of Transportation: No Lack of Food: Never True Current Housing: I Have Housing Concerned About Future Housing: No Difficulty Paying Gas/Electric Bills: No Difficulty Paying for Meds: No Currently Unemployed: No Education: High School Diploma/GED Difficulty w/ Childcare or Family Care: No Living arrangements: with family 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 EYES: PERRLA and EOMI. + periorbital edema bilaterally, right greater than left ENT: Mucous membranes moist. NECK: Supple. CHEST: Clear to auscultation. HEART: Regular rate and rhythm EXTREMITIES: Normal range of motion. SKIN: Warm, dry; erythematous weeping rash on distal forearm, predominantly dorsal side; surrounding folliculitis without lymphangitic streaking or purulent drainage, no crepitus, compartments soft; rash is nontender, pulses 2+ NEURO: Alert and oriented x3. PSYCH: Normal mood and affect. Course Vital Signs Vital signs: Vital Signs Temperature 97.8 F 03/22/24 13:03 Pulse Rate 72 03/22/24 13:03 Respiratory Rate 18 03/22/24 13:03 Blood Pressure 169/77 H 03/22/24 13:03 Pulse Oximetry 99 03/22/24 13:03 Oxygen Delivery Room Air 03/22/24 13:03 Temperature 97.8 F 03/22/24 13:03 Pulse Rate 62 03/22/24 14:26 Respiratory Rate 18 03/22/24 14:26 Blood Pressure 172/89 H 03/22/24 14:26 Pulse Oximetry 99 03/22/24 14:26 Oxygen Delivery Room Air 03/22/24 13:03 MDM - Wound/Laceration MDM Narrative Medical decision making narrative: 63-year-old male presenting with right arm rash. Vitals stable. Exam remarkable for the above. Sounds like he developed some of the a
[2024-03-22] MEDS: diphenhydrAMINE HCl INJ 50 MG/ML VIAL 25 MG IV PUSH (16:28)
[2024-03-22] MEDS: FAMOTIDINE 20 MG/2 ML VIAL IV PUSH (16:28)
[2024-03-22] MEDS: CLINDAMYCIN HCL 150 MG CAP 300 MG PO (16:28)
[2024-03-22] MEDS: SODIUM CHLORIDE 0.9% IV 1,000 ML 999 ML IV CONT (16:28)
[2024-03-22] MEDS: CEPHALEXIN 500 MG CAPSULE PO (16:28)
[2024-03-22 16:30] LABS: Basophils Absolute Auto 0.1 K/mm3 (0.0-0.1); Basophils Percent Auto 0.8 % (0.2-1.2); Eosinophils Absolute Auto 0.9 K/mm3 (0-0.3); Eosinophils Percent Auto 8.9 % (0-4.4); Hematocrit 38.6 % (42.0-52.0); Hemoglobin 13.1 g/dL (14.0-18.0); Immature Granulocyte Absolute 0.04 K/mm3 (0.00-0.031); Immature Granulocyte Percent A 0.4 % (0-0.5); Lymphocytes Absolute Auto 2.08 K/mm3 (0.9-3.2); Lymphocytes Percent Auto 20.5 % (18.3-44.2); Mean Corpuscular HGB Conc 33.9 g/dl (32-36); Mean Corpuscular Hemoglobin 31.3 pg (26-34); Mean Corpuscular Volume 92.3 fl (80-100); Mean Platelet Volume 10.2 fl (7.4-10.4); Monocytes Percent Auto 10.1 % (2.6-8.5); Neutrophils Percent Auto 59.3 % (45.5-73.1); Platelet Count Result 197 k/mm3 (150-375); Red Blood Count 4.18 M/mm3 (4.6-6.20); Red Cell Distribution Width 13.4 % (11.5-14.5); White Blood Count 10.2 K/mm3 (4.5-10.0)
[2024-03-22 16:43] LABS: Anion Gap 15 mmol/L (4-12); Blood Urea Nitrogen 33 mg/dL (9-20); Calcium 8.6 mg/dL (8.4-10.2); Carbon Dioxide 23 mmol/L (22-30); Chloride 101 mmol/L (98-107); Estimated CRCL calculation 46 ml/min; Estimated Glomerular Filt Rate 41; Glucose 88 mg/dL (65-110); Sodium 139 mmol/L (137-145)
== END 2024-03-22 18:13 | disposition home or self-care (01) ==
PROVIDERS: Emergency Provider Emergency Medicine; PCP Internal Medicine
DX: L03.113 Cellulitis of right upper limb (principal); L73.9 Follicular disorder, unspecified; T78.40XA Allergy, unspecified, initial encounter; E03.9 Hypothyroidism, unspecified; E78.5 Hyperlipidemia, unspecified; I10 Essential (primary) hypertension; Z87.891 Personal history of nicotine dependence
CPT/HCPCS: 36415; 80048; 85025; 96361; 96374; 96375; 99284; A9270; J1200; J7030

== ENCOUNTER 2024-03-31 11:06 | Outpatient (CLI) | payer BC, SELFPAY ==
[2024-03-31 12:06] LABS: Alanine Aminotransferase 48 U/L (6-50); Albumin Level 4.8 g/dL (3.5-5.1); Alkaline Phosphatase 63 U/L (38-126); Anion Gap 11 mmol/L (4-12); Aspartate Amino Transferase 37 U/L (17-59); Bilirubin,Total 0.5 mg/dL (0.2-1.3); Blood Urea Nitrogen 38 mg/dL (9-20); Carbon Dioxide 24 mmol/L (22-30); Chloride 102 mmol/L (98-107); Cholesterol 157 mg/dL (0-200); Estimated Glomerular Filt Rate 44; Glucose 100 mg/dL (65-110); HDL Direct 39 mg/dL; Potassium 4.3 mmol/L (3.4-5.0); Sodium 137 mmol/L (137-145); Triglycerides 165 mg/dL (<150)
[2024-03-31 12:17] LABS: LDL Cholesterol Direct 78 mg/dL
[2024-03-31 12:40] LABS: Free T4 Free Thyroxine 0.88 ng/mL (0.78-2.19)
== END 2024-03-31 11:07 | disposition home or self-care (01) ==
LOC: ANHLAB 11:09
PROVIDERS: PCP Internal Medicine; Visit Provider Nurse Practitioner
DX: E03.9 Hypothyroidism, unspecified (principal); E78.5 Hyperlipidemia, unspecified
CPT/HCPCS: 36415; 80053; 80061; 84439; 84443

== ENCOUNTER 2024-04-17 15:05 | Emergency (ER) | payer BC, SELFPAY ==
[2024-04-17 15:14] VITALS: BP 149/66; PULSE 64; RESP 18; TEMP 36.9; O2SAT 98
--- NOTE | 2024-04-17 15:38 | ED.GENADULT ---
HPI - General Adult General Chief complaint: Skin/Abscess/Foreign Body Stated complaint: right eye swollen, rash left wrist Time Seen by Provider: 04/17/24 15:38 Source: patient Mode of arrival: ambulatory Limitations: no limitations History of Present Illness HPI narrative: 63 yo M presents with c/o rash to L wrist and redness and swelling around eyes. Started yesterday after mowing lawn. Worse today. All systems reviewed and negative except as noted above. Related Data Allergies Allergy/AdvReac Type Severity Reaction Status Date / Time doxycycline Allergy Intermediate Swelling Verified 04/17/24 15:14 Review of Systems Review of Systems: CONSTITUTIONAL: Denies fever, chills, or sweats. EYES: Denies visual changes, redness, or discharge. ENT: Denies rhinorrhea, congestion, sore throat, or otalgia. CARDIOVASCULAR: Denies chest pain, palpitations, or edema. RESPIRATORY: Denies cough or dyspnea. GASTROINTESTINAL: Denies abdominal pain, nausea, vomiting, or diarrhea. GENITOURINARY: Denies dysuria or hematuria. SKIN: Reports rash and itching. MUSCULOSKELETAL: Denies back pain, joint pain, or myalgia. NEUROLOGIC: Denies headache, numbness, or weakness. PSYCHIATRIC: Denies anxiety or depression. All other systems reviewed are negative, except as documented in HPI. [facility] Past Medical History Medical History (Updated 04/17/24 @ 15:43 by Lyn Gomez NP) Benign essential hypertension Cholelithiasis H/O gastroesophageal reflux (GERD) Hypothyroidism, unspecified Other hyperlipidemia Prediabetes Testicular hypofunction Tobacco abuse Surgical History Surgical History H/O thumb surgery Family History Family History Father Diabetes mellitus Mother Hypertension Other Diabetes mellitus Cerebrovascular accident Social History Social History Smoking packs per day: 1 Smoking cigarettes per day: 20.0 Years smoked: 30 Smoking pack-years: 30.00 Smoking status: Former smoker Second hand tobacco smoke exposure: Yes Alcohol intake: never Substance use: never Substance use type: does not use Do You Feel Safe in your Home?: Yes Lack of Transportation: No Lack of Food: Never True Current Housing: I Have Housing Concerned About Future Housing: No Difficulty Paying Gas/Electric Bills: No Difficulty Paying for Meds: No Currently Unemployed: No Education: High School Diploma/GED Difficulty w/ Childcare or Family Care: No Living arrangements: with family 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 There is no relevant family history pertinent to the presenting complaint. Exam Narrative: GENERAL: This is a well-nourished, well-developed patient, in no apparent distress. HEAD: normocephalic, atraumatic. EYES: PERRL. Sclera clear/white. Vision is grossly intact. EARS: External ears normal NOSE: External nose normal NECK: Neck supple, non-tender without lymphadenopathy, masses or thyromegaly. CARDIOVASCULAR: Regular rate and rhythm without murmurs, gallops, or rubs. RESPIRATORY: Clear to auscultation. Breath sounds equal bilaterally. No wheezes, rales, or rhonchi. SKIN: warm, Dry, intact, good texture and turgor. erythematous fascicular rash to anterior aspect left wrist. Erythema and swelling around eyes without vesicles. NEURO: awake, alert, and oriented to person, place and time. There were no obvious focal neurologic abnormalities. EXTREMITIES: No joint tenderness, effusion, or edema noted. Course Course Level of Care: Express Care Visit Vital Signs
== END 2024-04-17 15:50 | disposition home or self-care (01) ==
PROVIDERS: Emergency Provider Nurse Practitioner Family; PCP Internal Medicine
DX: L25.5 Unspecified contact dermatitis due to plants, except food (principal); Z87.891 Personal history of nicotine dependence; I10 Essential (primary) hypertension; K21.9 Gastro-esophageal reflux disease without esophagitis; E03.9 Hypothyroidism, unspecified; E78.49 Other hyperlipidemia; R73.03 Prediabetes
CPT/HCPCS: 99213; G0463